=== PATIENT | female | born 1965 | race African-American/Black ===

== ENCOUNTER 2019-02-14 10:14 | Inpatient (IN) | payer BC ==
[~2019-02-14 10:14] MED LIST: Acetaminophen 1,000 MG in Premix Bag 1 BAG IV SCH; Famotidine 20 MG/2 ML SDV IVPUSH SCH; Ropivacaine 49.25 ML, Ketorolac 30 MG, EPINEPHrine 0.5 MG, cloNIDine 80 MCG in Sodium C... INJECT SCH; Scopolamine 1.5 MG Transdermal Patch TRDERM SCH; Tranexamic Acid 2,000 MG in Sodium Chloride 0.9% 100 ML IV ONE; ceFAZolin 2 GM in Premix Bag 1 BAG IV SCH
[2019-02-14] MEDS ORDERED: fentaNYL 100 MCG/2 ML SDV ONE (11:14)
[2019-02-14] MEDS ORDERED: Propofol 200 MG/20 ML SDV ONE (11:14)
[2019-02-14] MEDS ORDERED: Midazolam 1 MG/ML 2 ML SDV ONE (11:14)
[2019-02-14] MEDS: Lactated Ringers 1,000 ML IV SCH ×2 (11:15→22:41)
[2019-02-14] MEDS ORDERED: ceFAZolin/Dextrose,Iso-Osmotic 2 GM/50 ML Duplex Bag IV ONE ×2 (11:16→12:23)
--- NOTE | 2019-02-14 11:28 | PCM.PREANE ---
Preanesthetic Assessment - Anesthesia/Transfusion/Family Hx Anesthesia History: Prior Anesthesia Without Reaction Family History of Anesthesia Reaction: No Transfusion History: No Prior Transfusion(s) - Review of Systems General: No Symptoms Pulmonary: No Symptoms Cardiovascular: No Symptoms Gastrointestinal: No Symptoms Neurological: No Symptoms Other: Reports: None - Physical Assessment NPO Status Date: 02/13/19 O2 Sat by Pulse Oximetry: 98 Respiratory Rate: 16 Vital Signs: Last Vital Signs Temp Pulse 74 02/14/19 11:00 Resp 16 02/14/19 11:00 BP 150/80 H 02/14/19 11:00 Pulse Ox 98 02/14/19 11:00 Height: 5 ft 4 in Weight: 95.708 kg ASA Class: 2 Mental Status: Alert & Oriented x3 Airway Class: Mallampati = 2 Dentition: Reports: Normal Dentition ROM/Head Extension: Full Lungs: Clear to Auscultation, Normal Respiratory Effort Cardiovascular: Regular Rate, Regular Rhythm - Lab Values: Laboratory Last Values Urine HCG, Qual NEGATIVE (NEGATIVE) 02/14/19 10:50 - Allergies Allergies/Adverse Reactions: Allergies Allergy/AdvReac Type Severity Reaction Status Date / Time No Known Allergies Allergy Verified 02/10/19 07:32 - Blood Blood Available: No - Anesthesia Plan Pre-Op Medication Ordered: None - Acknowledgements Anesthesia Type Planned: Spinal Pt an Appropriate Candidate for the Planned Anesthesia: Yes Alternatives and Risks of Anesthesia Discussed w Pt/Guardian: Yes Pt/Guardian Understands and Agrees with Anesthesia Plan: Yes Additional Comments: PMH: htn, hld PLAN: spinal with sedation PreAnesthesia Questionnaire HEENT History: Reports: Other (See Below) Other HEENT History: reading glasses Cardiovascular History: Reports: High Cholesterol Respiratory History: Reports: None Gastrointestinal History: Reports: None Genitourinary History: Reports: None Musculoskeletal History: Reports: Osteoarthritis Neurological History: Reports: None Psychiatric History: Reports: None Endocrine/Metabolic History: Reports: Obesity/BMI 30+ Hematologic History: Reports: None Immunologic History: Reports: None Oncologic (Cancer) History: Reports: None Dermatologic History: Reports: None - Past Surgical History Head Surgeries/Procedures: Reports: None HEENT Surgical History: Reports: None Cardiovascular Surgical History: Reports: None Respiratory Surgical History: Reports: None GI Surgical History: Reports: Colonoscopy, Hernia, Abdominal Female Surgical History: Reports: None Endocrine Surgical History: Reports: None Neurological Surgical History: Reports: None Musculoskeletal Surgical History: Reports: None Oncologic Surgical History: Reports: None Dermatological Surgical History: Reports: None - SUBSTANCE USE Smoking Status *Q: Never Smoker Recreational Drug Use History: No - HOME MEDS Home Medications: Home Meds L.acidoph,Paracasei, B.lactis [Probiotic] 2 tab PO DAILY 02/10/19 [History] atorvaSTATin Calcium [Atorvastatin Calcium] 20 mg PO DAILY 02/10/19 [History] - CURRENT (IN HOUSE) MEDS Current Meds: Current Medications Famotidine (Pepcid) 40 mg IVPUSH ONARRIVE [facility] Last Admin: 02/14/19 11:19 Dose: 40 mg Acetaminophen 1,000 mg/ Premix 100 mls @ 400 mls/hr IV ONARRIVE PAT Last Admin: 02/14/19 11:22 Dose: 400 mls/hr Cefazolin Sodium/Dextrose 2 gm (/ Premix) 50 mls @ 100 mls/hr IV ONCALL PAT Ropivacaine 49.25 ml/Ketorolac Tromethamine 30 mg/Epinephrine HCl 0.5 mg/ Clonidine HCl 80 mcg/ Sodium Chloride 100 mls @ 50 mls/sec INJECT ASDIRECTED PAT Lactated Ringer's (Ringers, Lactated) 1,000 mls @ 100 mls/hr IV ASDIRECTED PAT Last Admin: 02/14/19 11:15 Dose: 100 mls/hr Scopolamine (Transderm-Scop) 1.5 mg TRDERM ONARRIVE PAT Last Admin: 02/14/19 11:26 Dose: 1.5 mg Discontinued Medications Cefazolin Sodium/Dextrose (Ancef) Confirm Administered Dose 2 gm IV .STK-MED ONE Stop: 02/14/19 11:17 Fentanyl (Sublimaze) Confirm Administered Dose 100 mcg .ROUTE .STK-MED ONE Stop: 02/14/19 11:15 Tranexamic Acid 2,000 mg/ (Sodium Chloride) 120 mls @ 600 mls/hr IV ASDIRECTED ONE Stop: 02/14/19 06:11 Midazolam HCl (Versed 1 Mg/Ml) Confirm Administered Dose 2 mg .ROUTE .STK-MED ONE Stop: 02/14/19 11:15 Propofol (Diprivan 20 Ml) Confirm Administered Dose 600 mg .ROUTE .STK-MED ONE Stop: 02/14/19 11:15 Tranexamic Acid (Cyklokapron) Confirm Administered Dose 2,000 mg .ROUTE .[facility] ONE Stop: 02/14/19 07:39
[2019-02-14] MEDS ORDERED: Ondansetron 4 MG/2 ML SDV IVPUSH ONE (12:21)
[2019-02-14] MEDS ORDERED: fentaNYL 100 MCG/2 ML SDV IVPUSH PRN (12:21)
[2019-02-14] MEDS ORDERED: HYDROmorphone 2 MG/ML SDV IVPUSH ONE (12:21)
[2019-02-14] MEDS ORDERED: Phenylephrine 1% 10 MG/ML SDV ONE (12:23)
[2019-02-14] MEDS ORDERED: ePHEDrine 50 MG/ML SDV ONE (12:23)
[2019-02-14] MEDS ORDERED: Docusate Sodium 100 MG Cap PO PRN (13:01)
[2019-02-14] MEDS ORDERED: Sodium Chloride 0.9% 2.5 ML Syringe FLUSH PRN (13:01)
[2019-02-14] MEDS ORDERED: Morphine PF 30 MG/30 ML PCA Vial IV PRN (13:01)
[2019-02-14] MEDS ORDERED: Sodium Chloride 0.9% 10 ML Syringe FLUSH PRN (13:01)
[2019-02-14] MEDS ORDERED: Aluminum Hydroxide/Magnesium Hydroxide/Simethicone Susp 30 ML Cup PO PRN (13:01)
[2019-02-14] MEDS ORDERED: Ondansetron 4 MG/2 ML SDV IVPUSH PRN (13:01)
[2019-02-14] MEDS ORDERED: diphenhydrAMINE 25 MG Cap PO PRN (13:01)
[2019-02-14] MEDS ORDERED: Bisacodyl 10 MG Supp RECTAL PRN (13:01)
--- NOTE | 2019-02-14 13:13 | PCM.OPNOTE ---
- General Post-Op/Procedure Note Date of Surgery/Procedure: 02/14/19 Operative Procedure(s): R TKA Post-Op Diagnosis: DJD R knee Anesthesia Technique: Moderate Sedation, Spinal Primary Surgeon: Xuan Youngblood Leather Coater: Norma Douglas Leather Coater: Shanice Marshall in mLs: 50 Condition: Good Free Text/Narrative:: #[id number] tt=37 min
--- NOTE | 2019-02-14 13:49 | PCM.POSTAN ---
POST ANESTHESIA ASSESSMENT - MENTAL STATUS Mental Status: Alert, Oriented - RESPIRATORY Respiratory Status: Respiratory Rate WNL, Airway Patent, O2 Saturation Stable - CARDIOVASCULAR CV Status: Pulse Rate WNL, Blood Pressure Stable - GASTROINTESTINAL GI Status: No Symptoms - POST OP HYDRATION Hydration Status: Adequate & Stable
[2019-02-14] MEDS: oxyCODONE 5 MG Tab PO PRN ×2 (18:25→23:56)
[2019-02-14] MEDS: Acetaminophen 1,000 MG in Premix Bag 1 BAG IV SCH ×2 (18:31→23:57)
[2019-02-14] MEDS: Ketorolac 30 MG/ML SDV IVPUSH SCH (19:14)
[2019-02-14] MEDS: ceFAZolin 2 GM in Premix Bag 1 BAG IV SCH (20:00)
[2019-02-15] MEDS: Ketorolac 30 MG/ML SDV IVPUSH SCH (00:03)
[2019-02-15] MEDS: ceFAZolin 2 GM in Premix Bag 1 BAG IV SCH (03:42)
[2019-02-15] MEDS: Acetaminophen 1,000 MG in Premix Bag 1 BAG IV SCH (05:43)
[2019-02-15] MEDS ORDERED: Morphine 4 MG/ML Syringe IVPUSH PRN (06:00)
[2019-02-15] MEDS ORDERED: Acetaminophen/oxyCODONE 325-5 MG Tab PO PRN (08:00)
[2019-02-15] MEDS: Acetaminophen/oxyCODONE 325-5 MG Tab PO PRN ×3 (08:20→16:40)
[2019-02-15] MEDS: Polyethylene Glycol 3350 Powder 17 GM Packet PO SCH (08:22)
[2019-02-15] MEDS: Famotidine 20 MG Tab PO SCH (08:22)
[2019-02-15] MEDS: atorvaSTATin 20 MG Tab PO SCH (08:23)
[2019-02-15] MEDS: Celecoxib 100 MG Cap PO SCH ×2 (08:24→20:11)
[2019-02-15] MEDS: Aspirin 325 MG Tab PO SCH ×2 (08:24→20:12)
--- NOTE | 2019-02-15 08:24 | PCM48HPAN ---
Post Anesthesia Note - EVALUATION WITHIN 48HRS OF ANESTHETIC Vital Signs in Normal Range: Yes Patient Participated in Evaluation: Yes Respiratory Function Stable: Yes Airway Patent: Yes Cardiovascular Function Stable: Yes Hydration Status Stable: Yes Pain Control Satisfactory: Yes Nausea and Vomiting Control Satisfactory: Yes Mental Status Recovered: Yes Resp Rate: 16
--- NOTE | 2019-02-15 08:28 | OR ---
SURGEON: Xuan Youngblood MD DATE OF PROCEDURE: 02/14/2019 PREOPERATIVE DIAGNOSIS: Degenerative joint disease of right knee, tricompartmental. POSTOPERATIVE DIAGNOSIS: Degenerative joint disease of right knee, tricompartmental. PROCEDURE PERFORMED: Right total knee arthroplasty. PRIMARY SURGEON: Xuan Youngblood MD. ASSISTANTS: MARÍA Springer and Shanice Marshall PA-C. ANESTHESIA: Spinal with sedation. ESTIMATED BLOOD LOSS: 50 mL. TOURNIQUET TIME: 37 minutes. COMPLICATIONS: None. DEEP VENOUS THROMBOSIS PROPHYLAXIS: PAS boot and DIMITRIOS hose to the nonoperative leg. IMPLANTS USED: David Persona femoral component, size 8 standard (LPS), tibial component size E, 10-mm all-polyethylene articular surface, and 32-mm all-polyethylene patella. INTRAOPERATIVE FINDINGS: Showed severe tricompartmental and degenerative changes with grade 4 chondromalacia and osteophyte formation. No significant synovitis was noted. BRIEF HISTORY: Angeles is a 53-year-old female, who has had complaint of progressive right knee pain. She had failed conservative treatment. Due to her lack of response to conservative treatment, I did recommend surgical intervention. The risks and goals of procedure were discussed with the patient and were documented preoperatively. She agreed to proceed. DESCRIPTION OF PROCEDURE: The patient was properly identified and brought to the operating room. The patient was then transferred from the operating room cart and placed on the operating table in a supine position. Anesthesia was administered by the anesthesia staff. After adequate anesthesia was obtained, a well-padded tourniquet was applied to the surgical lower extremity. Patel catheter was placed. The lower extremity was then prepped in standard fashion using ChloraPrep solution. It was then sterilely draped. A time-out was performed to ensure correct site and procedure. Preoperative antibiotics were given along with one gram tranexamic acid IV. The surgical site had been marked preoperatively. An Esmarch was used to exsanguinate the right lower extremity and the tourniquet was inflated. An incision was made over the anterior aspect of the knee. The subcutaneous tissues were dissected down to the level of the fascia. A medial parapatellar approach to the knee was made. A portion of the infrapatellar fat pad was then excised. The distal femur was then exposed. The step reamer was used to gain access to the intramedullary canal. This was placed in 6 degrees of valgus. Pins were placed. The distal femoral cutting block was placed and the distal femoral cut was made. Instrumentation was then removed. The femur was then sized. Both Whitesides' line and the epicondylar axis were then marked with electrocautery. The 4-in-1 cutting block was placed. This was placed in a slightly externally rotated position, which corresponded well with the previously drawn lines. The cutting guide was then pinned into position. An Ricky wing guide was used to check the depth of resection of our anterior condylar cut and it was felt that no notching would occur. The anterior condylar cut was then made followed by the posterior condylar cut. Both the posterior chamfer and anterior chamfer cuts were then made. The cutting block was then removed along with the excess bony remnants. We then turned our attention to the tibia. The anterior cruciate ligament and posterior cruciate ligament were released and a posterior cruciate ligament retractor was placed to allow the tibia to be pulled anteriorly. The tibial extra-medullary guide was then positioned. We chose to take approximately 2 mm off the lowest side. The proximal tibia cutting guide was then placed and screwed into position. The proximal tibial resection was then made with care being taken to protect the patellar tendon. The bony resection was then removed. The remainder of the medial and lateral meniscus were then excised. Care was taken to protect the popliteus tendon. The tibia was then sized to the appropriate size. The distal femur was then elevated. The posterior capsule was stripped off the distal femur both medially and laterally. The posterior capsule along with the medial and lateral gutters were then injected with a standard mixture consisting of clonidine, epinephrine, Toradol, and ropivacaine, unless any allergies were found preoperatively. The femoral component was then placed onto the distal femur in a slightly lateral position. This fit the femur well. A box cut was then made without difficulty. This was then removed. The tibial trial along with the polyethylene liner was then placed. The knee came easily into full extension and was stable to varus and valgus stressing both in full extension and flexion. Any additional releases were performed at this time. We then returned our attention to the patella. The patella was everted and towel clamps were used to hold the patella in position. It was resected to a 15 millimeter thickness. It was then sized to the appropriate size. It was prepared in the usual fashion after placing the predetermined size clamps. This was placed in a slightly superior and medial position. The clamp was then removed. The patellar trial button was placed. The knee was taken through a range of motion using the no-touch technique. The patella tracked centrally. A drop evita was then placed to check alignment. All instruments were then removed from the knee. The tibial sizer was then placed on the tibia. The tibia was prepared in the usual fashion using the reamer and broach. This was then removed. All bony surfaces were copiously irrigated with Pulsavac solution. They were then suctioned dry. Cement was prepared on the back table in the usual manner. Antibiotic impregnated cement was used if the patient was diabetic. Once it was prepared, the bone ends were again suctioned dry. The tibia was cemented into place first. This was malleted into position. Excess cement was then cleared. The femur was then placed in a similar manner. We placed the polyethylene trial into place and the knee was brought into full extension. An axial load was placed while keeping the knee in full extension. The patella button was also cemented into position and the clamp was used to hold this in place as the cement was allowed to cure. The wound was copiously irrigated with saline using a Pulsavac brick machine operator. Following this, 1 gram of tranexamic acid was applied topically to the wound during the curing process. After we had adequate curing of the cement, the knee was again taken through a range of motion. The size of the polyethylene was then determined. The polyethylene trial was then removed. The tibial tray was suctioned to make sure there was no remaining soft tissue or cement. Excess cement was cleared from around the edges of the prosthesis as well. The tourniquet was then deflated. We were able to observe for any excess bleeding and none was noted. Electrocautery was used to maintain hemostasis. An additional gram of tranexamic acid was given IV. The retractors were again placed and the predetermined polyethylene was then placed. This was locked into position without difficulty. The knee was again taken through a range of motion with no change from the prior exam. The fascial layer was closed with Number One Vicryl. The subcutaneous tissues were closed with 2-0 Vicryl. The skin was closed with kaley. Xeroform gauze was placed over the wound and a bulky dressing was applied. The patient was then awakened from anesthesia and transferred back to the operating room cart. They were brought to the recovery room in stable condition. All needle and sponge counts were correct. YAMILET GOMEZ /[id number]
[2019-02-15] MEDS: Lactated Ringers 1,000 ML IV SCH (09:53)
--- NOTE | 2019-02-15 09:56 | CR ---
EXAMINATION: Right knee HISTORY: Arthroplasty COMPARISON: 08/10/2018 TECHNIQUE: 2 views FINDINGS/IMPRESSION: Right total knee hardware is demonstrated in good position and alignment. Postoperative soft tissue changes are noted.
--- NOTE | 2019-02-15 12:27 | PCM.SURGPN ---
<Norma Douglas - Last Filed: 02/15/19 12:20> - General Info Date of Service: 02/15/19 (0800) Date of Surgery/Procedure: 02/14/19 (s/p RIGHT TKA) POD#: 1 Post-Op Diagnosis: degenerative joint disease, right knee, tricompartmental Admission Diagnosis/Problem: Knee pain Functional Status: Reports: Pain Controlled, Tolerating Diet, Ambulating, Other (up in chair for breakfast. tolerating po fluids. No N/V yesterday and tolerated supper. Vee catheter removed. Has not voided yet. Did not ambulate with PT yesterday, just bed to chair transfer. Pain controlled. No acute concerns. ) - Review of Systems General: Reports: No Symptoms. Denies: Fever HEENT: Reports: No Symptoms Pulmonary: Reports: No Symptoms. Denies: Shortness of Breath Cardiovascular: Reports: No Symptoms. Denies: Chest Pain Gastrointestinal: Reports: No Symptoms. Denies: Abdominal Pain, Nausea, Vomiting Genitourinary: Reports: Other (vee catheter removed this morning) Musculoskeletal: Reports: Joint Pain (s/p right TKA) Skin: Reports: No Symptoms Neurological: Reports: No Symptoms. Denies: Confusion Psychiatric: Reports: No Symptoms - Patient Data Vitals - Most Recent: Last Vital Signs Temp 36.3 C 02/15/19 11:00 Pulse 85 02/15/19 11:00 Resp 14 02/15/19 11:00 BP 126/58 L 02/15/19 11:00 Pulse Ox 96 02/15/19 11:00 Weight - Most Recent: 95.708 kg I&O - Last 24 Hours: Intake & Output 02/14/19 02/15/19 02/15/19 22:59 06:59 14:59 Intake Total 900 1833 Output Total 250 1075 Balance 650 758 Lab Results Last 24 Hrs: Laboratory Results - last 24 hr 02/15/19 Range/Units 05:20 Hgb 11.6 L (12.0-16.0) g/dL Hct 35.1 L (36.0-46.0) % Med Orders - Current: Current Medications Al Hydroxide/Mg Hydroxide (Mag-Al Plus) 30 ml PO Q4H PRN PRN Reason: Indigestion Aspirin (Aspirin) 325 mg PO BID PAT Last Admin: 02/15/19 08:24 Dose: 325 mg Atorvastatin Calcium (Lipitor) 20 mg PO DAILY [facility] Last Admin: 02/15/19 08:23 Dose: 20 mg Bisacodyl (Dulcolax) 10 mg RECTAL DAILY PRN PRN Reason: Constipation Celecoxib (Celebrex) 200 mg PO BID [facility] Last Admin: 02/15/19 08:24 Dose: 200 mg Diphenhydramine HCl (Benadryl) 25 - 50 mg PO Q6H PRN PRN Reason: Itching Docusate Sodium (Colace) 100 mg PO BID PRN PRN Reason: Constipation Famotidine (Pepcid) 40 mg IVPUSH ONARRIVE [facility] Last Admin: 02/14/19 11:19 Dose: 40 mg Famotidine (Pepcid) 40 mg PO DAILY [facility] Last Admin: 02/15/19 08:22 Dose: 40 mg Fentanyl (Sublimaze) 50 mcg IVPUSH Q5M PRN PRN Reason: Pain (severe 7-10) Stop: 02/15/19 12:21 Acetaminophen 1,000 mg/ Premix 100 mls @ 400 mls/hr IV ONARRIVE [facility] Last Admin: 02/14/19 11:22 Dose: 400 mls/hr Cefazolin Sodium/Dextrose 2 gm (/ Premix) 50 mls @ 100 mls/hr IV ONCALL [facility] Ropivacaine 49.25 ml/Ketorolac Tromethamine 30 mg/Epinephrine HCl 0.5 mg/ Clonidine HCl 80 mcg/ Sodium Chloride 100 mls @ 50 mls/sec INJECT ASDIRECTED [facility] Lactated Ringer's (Ringers, Lactated) 1,000 mls @ 100 mls/hr IV ASDIRECTED [facility] Last Admin: 02/15/19 09:53 Dose: 100 mls/hr Morphine Sulfate (Morphine) 1 - 3 mg IVPUSH Q3H PRN PRN Reason: Pain Ondansetron HCl (Zofran) 4 mg IVPUSH Q6H PRN PRN Reason: Nausea/Vomiting Oxycodone/Acetaminophen (Percocet 325-5 Mg) 1 - 2 tab PO Q4H PRN PRN Reason: Pain Last Admin: 02/15/19 08:20 Dose: 2 tab Oxycodone/Acetaminophen (Percocet 325-5 Mg) 1 - 2 tab PO Q4H PRN PRN Reason: Pain Polyethylene Glycol (Miralax) 17 gm PO DAILY [facility] Last Admin: 02/15/19 08:22 Dose: 17 gm Scopolamine (Transderm-Scop) 1.5 mg TRDERM ONARRIVE [facility] Last Admin: 02/14/19 11:26 Dose: 1.5 mg Sodium Chloride (Saline Flush) 10 ml FLUSH ASDIRECTED PRN PRN Reason: Keep Vein Open Sodium Chloride (Saline Flush) 2.5 ml FLUSH ASDIRECTED PRN PRN Reason: Keep Vein Open Discontinued Medications Cefazolin Sodium/Dextrose (Ancef) Confirm Administered Dose 2 gm IV .STK-MED ONE Stop: 02/14/19 11:17 Cefazolin Sodium/Dextrose (Ancef) Confirm Administered Dose 2 gm IV .STK-MED ONE Stop: 02/14/19 12:24 Ephedrine Sulfate (Ephedrine Sulfate) Confirm Administered Dose 50 mg .ROUTE .STK-MED ONE Stop: 02/14/19 12:24 Fentanyl (Sublimaze) Confirm Administered Dose 100 mcg .ROUTE .STK-MED ONE Stop: 02/14/19 11:15 Hydromorphone HCl (Dilaudid) 2 mg IVPUSH ONETIME ONE Stop: 02/14/19 12:22 Last Admin: 02/14/19 19:33 Dose: Not Given Tranexamic Acid 2,000 mg/ (Sodium Chloride) 120 mls @ 600 mls/hr IV ASDIRECTED ONE Stop: 02/14/19 06:11 Last Admin: 02/14/19 19:33 Dose: Not Given Acetaminophen 1,000 mg/ Premix 100 mls @ 400 mls/hr IV Q6H PAT Stop: 02/15/19 06:14 Last Admin: 02/15/19 05:43 Dose: 400 mls/hr Cefazolin Sodium/Dextrose 2 gm (/ Premix) 50 mls @ 100 mls/hr IV Q8H [facility] Stop: 02/15/19 04:29 Last Admin: 02/15/19 03:42 Dose: 100 mls/hr Ketorolac Tromethamine (Toradol) 30 mg IVPUSH Q6H [facility] Stop: 02/15/19 05:00 Last Admin: 02/15/19 00:03 Dose: 30 mg Midazolam HCl (Versed 1 Mg/Ml) Confirm Administered Dose 2 mg .ROUTE .STK-MED ONE Stop: 02/14/19 11:15 Morphine Sulfate (Morphine [place] Operator 30 Mg In 30 Ml) 30 mg IV ASDIRECTED PRN; Protocol PRN Reason: Pain Stop: 02/15/19 06:00 Last Admin: 02/14/19 14:03 Dose: 30 mg Ondansetron HCl (Zofran) 4 mg IVPUSH ONETIME ONE Stop: 02/14/19 12:22 Last Admin: 02/14/19 19:33 Dose: Not Given Oxycodone HCl (Oxycodone) 5 - 10 mg PO Q4H PRN PRN Reason: Pain Stop: 02/15/19 08:00 Last Admin: 02/14/19 23:56 Dose: 10 mg Phenylephrine HCl (David-Synephrine) Confirm Administered Dose 10 mg .ROUTE .STK- MED ONE Stop: 02/14/19 12:24 Propofol (Diprivan 20 Ml) Confirm Administered Dose 600 mg .ROUTE .STK-MED ONE Stop: 02/14/19 11:15 Tranexamic Acid (Cyklokapron) Confirm Administered Dose 2,000 mg .ROUTE .STK- MED ONE Stop: 02/14/19 07:39 - Exam Wound/Incisions: Dressing Dry and Intact, No Drainage (surgical dressing intact without drainage) Quality Assessment: DVT Prophylaxis (ASA and SCDs) General: Alert, Oriented, Cooperative, No Acute Distress HEENT: Pupils Equal Neck: Supple Lungs: Normal Respiratory Effort GI/Abdominal Exam: Normal Bowel Sounds Extremities: Other (AT/EHL/gastroc 5/5 Sensation grossly intact to LE. PP2+) Skin: Warm, Dry Neurological: Normal Speech Psy/Mental Status: Alert, Normal Affect, Normal Mood - Problem List Review Problem List Initiated/Reviewed/Updated: Yes - My Orders Last 24 Hours: Active Orders 24 hr Category Date Time Status Neurovascular Check [RC] Q2HR Care 02/14/19 13:01 Active Wound Care [RC] DAILY Care 02/14/19 13:01 Active PT Evaluation and Treatment [CONS] Routine Cons 02/14/19 13:01 Active Regular Diet [DIET] Diet 02/14/19 Dinner Active HEMOGLOBIN/HEMATOCRIT,HH [HEME] DAILY Lab 02/16/19 06:00 Ordered Acetaminophen/oxyCODONE [Percocet 325-5 MG] Med 02/15/19 06:00 Active 1 - 2 tab PO Q4H PRN Acetaminophen/oxyCODONE [Percocet 325-5 MG] Med 02/15/19 08:00 Active 1 - 2 tab PO Q4H PRN Alum Hydrox/Mag Hydrox/Simeth [Mag-Al Plus] Med 02/14/19 13:01 Active 30 ml PO Q4H PRN Aspirin Med 02/15/19 09:00 Active 325 mg PO BID Bisacodyl [Dulcolax] Med 02/14/19 13:01 Active 10 mg RECTAL DAILY PRN Celecoxib [CeleBREX] Med 02/15/19 09:00 Active 200 mg PO BID Docusate Sodium [Colace] Med 02/14/19 13:01 Active 100 mg PO BID PRN Famotidine [Pepcid] Med 02/15/19 09:00 Active 40 mg PO DAILY Morphine Med 02/15/19 06:00 Active 1 - 3 mg IVPUSH Q3H PRN Ondansetron [Zofran] Med 02/14/19 13:01 Active 4 mg IVPUSH Q6H PRN Polyethylene Glycol 3350 [MiraLAX] Med 02/15/19 09:00 Active 17 gm PO DAILY Sodium Chloride 0.9% [Saline Flush] Med 02/14/19 13:01 Active 10 ml FLUSH ASDIRECTED PRN Sodium Chloride 0.9% [Saline Flush] Med 02/14/19 13:01 Active 2.5 ml FLUSH ASDIRECTED PRN atorvaSTATin [Lipitor] Med 02/15/19 09:00 Active 20 mg PO DAILY diphenhydrAMINE [Benadryl] Med 02/14/19 13:01 Active 25 - 50 mg PO Q6H PRN fentaNYL [Sublimaze] Med 02/14/19 12:21 Active 50 mcg IVPUSH Q5M PRN Convert IV to Saline Lock [OM.PC] PRN Oth 02/14/19 13:15 Ordered Convert IV to Saline Lock [OM.PC] PRN Oth 02/15/19 13:15 Ordered Ice Therapy [OM.PC] Routine Oth 02/14/19 13:01 Ordered Medication Orders Al Hydroxide/Mg Hydroxide (Mag-Al Plus) 30 ml PO Q4H PRN PRN Reason: Indigestion Aspirin (Aspirin) 325 mg PO BID [facility] Last Admin: 02/15/19 08:24 Dose: 325 mg Atorvastatin Calcium (Lipitor) 20 mg PO DAILY [facility] Last Admin: 02/15/19 08:23 Dose: 20 mg Bisacodyl (Dulcolax) 10 mg RECTAL DAILY PRN PRN Reason: Constipation Celecoxib (Celebrex) 200 mg PO BID [facility] Last Admin: 02/15/19 08:24 Dose: 200 mg Diphenhydramine HCl (Benadryl) 25 - 50 mg PO Q6H PRN PRN Reason: Itching Docusate Sodium (Colace) 100 mg PO BID PRN PRN Reason: Constipation Famotidine (Pepcid) 40 mg IVPUSH ONARRIVE [facility] Last Admin: 02/14/19 11:19 Dose: 40 mg Famotidine (Pepcid) 40 mg PO DAILY [facility] Last Admin: 02/15/19 08:22 Dose: 40 mg Fentanyl (Sublimaze) 50 mcg IVPUSH Q5M PRN PRN Reason: Pain (severe 7-10) Stop: 02/15/19 12:21 Acetaminophen 1,000 mg/ Premix 100 mls @ 400 mls/hr IV ONARRIVE [facility] Last Admin: 02/14/19 11:22 Dose: 400 mls/hr Cefazolin Sodium/Dextrose 2 gm (/ Premix) 50 mls @ 100 mls/hr IV ONCALL [facility] Ropivacaine 49.25 ml/Ketorolac Tromethamine 30 mg/Epinephrine HCl 0.5 mg/ Clonidine HCl 80 mcg/ Sodium Chloride 100 mls @ 50 mls/sec INJECT ASDIRECTED [facility] Lactated Ringer's (Ringers, Lactated) 1,000 mls @ 100 mls/hr IV ASDIRECTED [facility] Last Admin: 02/15/19 09:53 Dose: 100 mls/hr Infusion: 02/15/19 08:41 Dose: 100 mls/hr Admin: 02/14/19 22:41 Dose: 100 mls/hr Infusion: 02/14/19 21:15 Dose: 100 mls/hr Admin: 02/14/19 11:15 Dose: 100 mls/hr Morphine Sulfate (Morphine) 1 - 3 mg IVPUSH Q3H PRN PRN Reason: Pain Ondansetron HCl (Zofran) 4 mg IVPUSH Q6H PRN PRN Reason: Nausea/Vomiting Oxycodone/Acetaminophen (Percocet 325-5 Mg) 1 - 2 tab PO Q4H PRN PRN Reason: Pain Last Admin: 02/15/19 08:20 Dose: 2 tab Oxycodone/Acetaminophen (Percocet 325-5 Mg) 1 - 2 tab PO Q4H PRN PRN Reason: Pain Polyethylene Glycol (Miralax) 17 gm PO DAILY PAT Last Admin: 02/15/19 08:22 Dose: 17 gm Scopolamine (Transderm-Scop) 1.5 mg TRDERM ONARRIVE PAT Last Admin: 02/14/19 11:26 Dose: 1.5 mg Sodium Chloride (Saline Flush) 10 ml FLUSH ASDIRECTED PRN PRN Reason: Keep Vein Open Sodium Chloride (Saline Flush) 2.5 ml FLUSH ASDIRECTED PRN PRN Reason: Keep Vein Open - Assessment Assessment (Free Text/Narrative):: 1. S/P RIGHT TKA 2. post-hemorrhagic anemia, stable at 11.6 - Plan Plan (Free Text/Narrative):: Doing well this morning. Pain controlled. PT today for distance ambulation. Vee d/c'd. d/c IV fluids and [employer]. PO Rx for pain control. DVT prophylaxis : asa starts today. SCDs. Surgical dressing CDI. Will be removed tomorrow and large AquaCell dressing will be applied. Anticipate overnight stay for continued PT today and pain management. <Xuan Youngblood R - Last Filed: 02/15/19 19:27> - Patient Data Vitals - Most Recent: Last Vital Signs Temp 98.7 F 02/15/19 15:00 Pulse 78 02/15/19 15:00 Resp 20 02/15/19 15:00 BP 158/73 H 02/15/19 15:00 Pulse Ox 96 02/15/19 15:00 I&O - Last 24 Hours: Intake & Output 02/15/19 02/15/19 02/15/19 06:59 14:59 22:59 Intake Total 1833 2384 Output Total 107 700 Balance 754 4044 Lab Results Last 24 Hrs: Laboratory Results - last 24 hr 02/15/19 Range/Units 05:20 Hgb 11.6 L (12.0-16.0) g/dL Hct 35.1 L (36.0-46.0) % Med Orders - Current: Current Medications Al Hydroxide/Mg Hydroxide (Mag-Al Plus) 30 ml PO Q4H PRN PRN Reason: Indigestion Aspirin (Aspirin) 325 mg PO BID [facility] Last Admin: 02/15/19 08:24 Dose: 325 mg Atorvastatin Calcium (Lipitor) 20 mg PO DAILY [facility] Last Admin: 02/15/19 08:23 Dose: 20 mg Bisacodyl (Dulcolax) 10 mg RECTAL DAILY PRN PRN Reason: Constipation Celecoxib (Celebrex) 200 mg PO BID [facility] Last Admin: 02/15/19 08:24 Dose: 200 mg Diphenhydramine HCl (Benadryl) 25 - 50 mg PO Q6H PRN PRN Reason: Itching Docusate Sodium (Colace) 100 mg PO BID PRN PRN Reason: Constipation Famotidine (Pepcid) 40 mg IVPUSH ONARRIVE [facility] Last Admin: 02/14/19 11:19 Dose: 40 mg Famotidine (Pepcid) 40 mg PO DAILY [facility] Last Admin: 02/15/19 08:22 Dose: 40 mg Acetaminophen 1,000 mg/ Premix 100 mls @ 400 mls/hr IV ONARRIVE [facility] Last Admin: 02/14/19 11:22 Dose: 400 mls/hr Cefazolin Sodium/Dextrose 2 gm (/ Premix) 50 mls @ 100 mls/hr IV ONCALL [facility] Ropivacaine 49.25 ml/Ketorolac Tromethamine 30 mg/Epinephrine HCl 0.5 mg/ Clonidine HCl 80 mcg/ Sodium Chloride 100 mls @ 50 mls/sec INJECT ASDIRECTED [facility] Lactated Ringer's (Ringers, Lactated) 1,000 mls @ 100 mls/hr IV ASDIRECTED [facility] Last Admin: 02/15/19 09:53 Dose: 100 mls/hr Morphine Sulfate (Morphine) 1 - 3 mg IVPUSH Q3H PRN PRN Reason: Pain Ondansetron HCl (Zofran) 4 mg IVPUSH Q6H PRN PRN Reason: Nausea/Vomiting Oxycodone/Acetaminophen (Percocet 325-5 Mg) 1 - 2 tab PO Q4H PRN PRN Reason: Pain Last Admin: 02/15/19 16:40 Dose: 2 tab Oxycodone/Acetaminophen (Percocet 325-5 Mg) 1 - 2 tab PO Q4H PRN PRN Reason: Pain Polyethylene Glycol (Miralax) 17 gm PO DAILY [facility] Last Admin: 02/15/19 08:22 Dose: 17 gm Scopolamine (Transderm-Scop) 1.5 mg TRDERM ONARRIVE [facility] Last Admin: 02/14/19 11:26 Dose: 1.5 mg Sodium Chloride (Saline Flush) 10 ml FLUSH ASDIRECTED PRN PRN Reason: Keep Vein Open Sodium Chloride (Saline Flush) 2.5 ml FLUSH ASDIRECTED PRN PRN Reason: Keep Vein Open Discontinued Medications Cefazolin Sodium/Dextrose (Ancef) Confirm Administered Dose 2 gm IV .STK-MED ONE Stop: 02/14/19 11:17 Cefazolin Sodium/Dextrose (Ancef) Confirm Administered Dose 2 gm IV .STK-MED ONE Stop: 02/14/19 12:24 Ephedrine Sulfate (Ephedrine Sulfate) Confirm Administered Dose 50 mg .ROUTE .STK-MED ONE Stop: 02/14/19 12:24 Fentanyl (Sublimaze) Confirm Administered Dose 100 mcg .ROUTE .STK-MED ONE Stop: 02/14/19 11:15 Fentanyl (Sublimaze) 50 mcg IVPUSH Q5M PRN PRN Reason: Pain (severe 7-10) Stop: 02/15/19 12:21 Hydromorphone HCl (Dilaudid) 2 mg IVPUSH ONETIME ONE Stop: 02/14/19 12:22 Last Admin: 02/14/19 19:33 Dose: Not Given Tranexamic Acid 2,000 mg/ (Sodium Chloride) 120 mls @ 600 mls/hr IV ASDIRECTED ONE Stop: 02/14/19 06:11 Last Admin: 02/14/19 19:33 Dose: Not Given Acetaminophen 1,000 mg/ Premix 100 mls @ 400 mls/hr IV Q6H [facility] Stop: 02/15/19 06:14 Last Admin: 02/15/19 05:43 Dose: 400 mls/hr Cefazolin Sodium/Dextrose 2 gm (/ Premix) 50 mls @ 100 mls/hr IV Q8H [facility] Stop: 02/15/19 04:29 Last Admin: 02/15/19 03:42 Dose: 100 mls/hr Ketorolac Tromethamine (Toradol) 30 mg IVPUSH Q6H PAT Stop: 02/15/19 05:00 Last Admin: 02/15/19 00:03 Dose: 30 mg Midazolam HCl (Versed 1 Mg/Ml) Confirm Administered Dose 2 mg .ROUTE .STK-MED ONE Stop: 02/14/19 11:15 Morphine Sulfate (Morphine [place] Operator 30 Mg In 30 Ml) 30 mg IV ASDIRECTED PRN; Protocol PRN Reason: Pain Stop: 02/15/19 06:00 Last Admin: 02/14/19 14:03 Dose: 30 mg Ondansetron HCl (Zofran) 4 mg IVPUSH ONETIME ONE Stop: 02/14/19 12:22 Last Admin: 02/14/19 19:33 Dose: Not Given Oxycodone HCl (Oxycodone) 5 - 10 mg PO Q4H PRN PRN Reason: Pain Stop: 02/15/19 08:00 Last Admin: 02/14/19 23:56 Dose: 10 mg Phenylephrine HCl (David-Synephrine) Confirm Administered Dose 10 mg .ROUTE .STK- MED ONE Stop: 02/14/19 12:24 Propofol (Diprivan 20 Ml) Confirm Administered Dose 600 mg .ROUTE .STK-MED ONE Stop: 02/14/19 11:15 Tranexamic Acid (Cyklokapron) Confirm Administered Dose 2,000 mg .ROUTE .STK- MED ONE Stop: 02/14/19 07:39 - My Orders Last 24 Hours: Active Orders 24 hr Category Date Time Status HEMOGLOBIN/HEMATOCRIT,HH [HEME] DAILY Lab 02/16/19 06:00 Ordered Acetaminophen/oxyCODONE [Percocet 325-5 MG] Med 02/15/19 06:00 Active 1 - 2 tab PO Q4H PRN Acetaminophen/oxyCODONE [Percocet 325-5 MG] Med 02/15/19 08:00 Active 1 - 2 tab PO Q4H PRN Aspirin Med 02/15/19 09:00 Active 325 mg PO BID Celecoxib [CeleBREX] Med 02/15/19 09:00 Active 200 mg PO BID Famotidine [Pepcid] Med 02/15/19 09:00 Active 40 mg PO DAILY Morphine Med 02/15/19 06:00 Active 1 - 3 mg IVPUSH Q3H PRN Polyethylene Glycol 3350 [MiraLAX] Med 02/15/19 09:00 Active 17 gm PO DAILY atorvaSTATin [Lipitor] Med 02/15/19 09:00 Active 20 mg PO DAILY Convert IV to Saline Lock [OM.PC] PRN Oth 02/15/19 13:15 Ordered Medication Orders Al Hydroxide/Mg Hydroxide (Mag-Al Plus) 30 ml PO Q4H PRN PRN Reason: Indigestion Aspirin (Aspirin) 325 mg PO BID [facility] Last Admin: 02/15/19 08:24 Dose: 325 mg Atorvastatin Calcium (Lipitor) 20 mg PO DAILY [facility] Last Admin: 02/15/19 08:23 Dose: 20 mg Bisacodyl (Dulcolax) 10 mg RECTAL DAILY PRN PRN Reason: Constipation Celecoxib (Celebrex) 200 mg PO BID [facility] Last Admin: 02/15/19 08:24 Dose: 200 mg Diphenhydramine HCl (Benadryl) 25 - 50 mg PO Q6H PRN PRN Reason: Itching Docusate Sodium (Colace) 100 mg PO BID PRN PRN Reason: Constipation Famotidine (Pepcid) 40 mg IVPUSH ONARRIVE [facility] Last Admin: 02/14/19 11:19 Dose: 40 mg Famotidine (Pepcid) 40 mg PO DAILY [facility] Last Admin: 02/15/19 08:22 Dose: 40 mg Acetaminophen 1,000 mg/ Premix 100 mls @ 400 mls/hr IV ONARRIVE [facility] Last Admin: 02/14/19 11:22 Dose: 400 mls/hr Cefazolin Sodium/Dextrose 2 gm (/ Premix) 50 mls @ 100 mls/hr IV ONCALL [facility] Ropivacaine 49.25 ml/Ketorolac Tromethamine 30 mg/Epinephrine HCl 0.5 mg/ Clonidine HCl 80 mcg/ Sodium Chloride 100 mls @ 50 mls/sec INJECT ASDIRECTED [facility] Lactated Ringer's (Ringers, Lactated) 1,000 mls @ 100 mls/hr IV ASDIRECTED [facility] Last Admin: 02/15/19 09:53 Dose: 100 mls/hr Infusion: 02/15/19 08:41 Dose: 100 mls/hr Admin: 02/14/19 22:41 Dose: 100 mls/hr Infusion: 02/14/19 21:15 Dose: 100 mls/hr Admin: 02/14/19 11:15 Dose: 100 mls/hr Morphine Sulfate (Morphine) 1 - 3 mg IVPUSH Q3H PRN PRN Reason: Pain Ondansetron HCl (Zofran) 4 mg IVPUSH Q6H PRN PRN Reason: Nausea/Vomiting Oxycodone/Acetaminophen (Percocet 325-5 Mg) 1 - 2 tab PO Q4H PRN PRN Reason: Pain Last Admin: 02/15/19 16:40 Dose: 2 tab Admin: 02/15/19 12:43 Dose: 2 tab Admin: 02/15/19 08:20 Dose: 2 tab Oxycodone/Acetaminophen (Percocet 325-5 Mg) 1 - 2 tab PO Q4H PRN PRN Reason: Pain Polyethylene Glycol (Miralax) 17 gm PO DAILY [facility] Last Admin: 02/15/19 08:22 Dose: 17 gm Scopolamine (Transderm-Scop) 1.5 mg TRDERM ONARRIVE [facility] Last Admin: 02/14/19 11:26 Dose: 1.5 mg Sodium Chloride (Saline Flush) 10 ml FLUSH ASDIRECTED PRN PRN Reason: Keep Vein Open Sodium Chloride (Saline Flush) 2.5 ml FLUSH ASDIRECTED PRN PRN Reason: Keep Vein Open - Plan Plan (Free Text/Narrative):: 1930 patient seen and examined. Agree wither approximately 3 drea progress slowly with physical therapy today. Hemoglobin is stable. 1. Continue current pain management-will add tramadol for breakthrough pain 2. Continue physical therapy and mobilization 3. Aspirin for DVT prophylaxis 4. Anticipate discharge home tomorrow following physical therapy rrk
[2019-02-15] MEDS ORDERED: traMADol 50 MG Tab PO PRN (19:25)
[2019-02-16] MEDS: Acetaminophen/oxyCODONE 325-5 MG Tab PO PRN ×2 (04:15→13:08)
[2019-02-16] MEDS: Aspirin 325 MG Tab PO SCH (08:18)
[2019-02-16] MEDS: Celecoxib 100 MG Cap PO SCH (08:18)
[2019-02-16] MEDS: Famotidine 20 MG Tab PO SCH (08:18)
[2019-02-16] MEDS: Polyethylene Glycol 3350 Powder 17 GM Packet PO SCH (08:18)
[2019-02-16] MEDS: atorvaSTATin 20 MG Tab PO SCH (08:18)
--- NOTE | 2019-02-18 08:40 | PCM.DCSUM1 ---
Discharge Summary - Hospital Course Free Text/Narrative:: document # [id number] - Discharge Data Discharge Date: 02/16/19 Discharge Disposition: Home, Self-Care 01 Condition: Good - Patient Summary/Data Operative Procedure(s) Performed: R TKA Consults: Consultations 02/14/19 13:01 PT Evaluation and Treatment [CONS] Routine - Patient Instructions Other/Special Instructions: Please see Dr. Youngblood's post-operative total knee arthroplasty patient instructions (orange sheet). - Discharge Plan Prescriptions/Med Rec: Acetaminophen/oxyCODONE [Percocet 325-5 MG] 1 - 2 tab PO Q4H PRN #60 tablet PRN Reason: Pain Aspirin 325 mg PO BID #60 tablet Celecoxib [CeleBREX] 200 mg PO DAILY #30 cap Docusate Sodium [Colace] 100 mg PO BID PRN #60 cap PRN Reason: Constipation Polyethylene Glycol 3350 [MiraLAX] 17 gm PO DAILY #30 packet Home Medications: Home Meds L.acidoph,Paracasei, B.lactis [Probiotic] 2 tab PO DAILY 02/10/19 [History] atorvaSTATin Calcium [Atorvastatin Calcium] 20 mg PO DAILY 02/10/19 [History] Cholecalciferol (Vitamin D3) [Vitamin D3] 2,000 unit PO DAILY 02/14/19 [History] Acetaminophen/oxyCODONE [Percocet 325-5 MG] 1 - 2 tab PO Q4H PRN #60 tablet [Rx] Aspirin 325 mg PO BID #60 tablet 02/16/19 [Rx] Celecoxib [CeleBREX] 200 mg PO DAILY #30 cap 02/16/19 [Rx] Docusate Sodium [Colace] 100 mg PO BID PRN #60 cap 02/16/19 [Rx] Polyethylene Glycol 3350 [MiraLAX] 17 gm PO DAILY #30 packet 02/16/19 [Rx] Patient Handouts: Acetaminophen; Oxycodone tablets, Celecoxib capsules, Total Knee Replacement, Care After, [id number], Aspirin, ASA oral tablets, Docusate capsules, Polyethylene Glycol powder Referrals: Xuan Youngblood MD [Physician] - 03/29/19 10:00 am Norma Douglas NP [Nurse Practitioner] - 02/25/19 10:20 am - Discharge Summary/Plan Comment DC Time >30 min.: No - Patient Data Vitals - Most Recent: Last Vital Signs Temp 36.6 C 02/16/19 11:17 Pulse 84 02/16/19 11:17 Resp 16 02/16/19 11:17 BP 160/77 H 02/16/19 11:17 Pulse Ox 95 02/16/19 11:17 Weight - Most Recent: 95.708 kg Med Orders - Current: Current Medications Discontinued Medications Al Hydroxide/Mg Hydroxide (Mag-Al Plus) 30 ml PO Q4H PRN PRN Reason: Indigestion Aspirin (Aspirin) 325 mg PO BID [facility] Last Admin: 02/16/19 08:18 Dose: 325 mg Atorvastatin Calcium (Lipitor) 20 mg PO DAILY [facility] Last Admin: 02/16/19 08:18 Dose: 20 mg Bisacodyl (Dulcolax) 10 mg RECTAL DAILY PRN PRN Reason: Constipation Cefazolin Sodium/Dextrose (Ancef) Confirm Administered Dose 2 gm IV .STK-MED ONE Stop: 02/14/19 11:17 Cefazolin Sodium/Dextrose (Ancef) Confirm Administered Dose 2 gm IV .STK-MED ONE Stop: 02/14/19 12:24 Celecoxib (Celebrex) 200 mg PO BID [facility] Last Admin: 02/16/19 08:18 Dose: 200 mg Diphenhydramine HCl (Benadryl) 25 - 50 mg PO Q6H PRN PRN Reason: Itching Docusate Sodium (Colace) 100 mg PO BID PRN PRN Reason: Constipation Ephedrine Sulfate (Ephedrine Sulfate) Confirm Administered Dose 50 mg .ROUTE .STK-MED ONE Stop: 02/14/19 12:24 Famotidine (Pepcid) 40 mg IVPUSH ONARRIVE [facility] Last Admin: 02/14/19 11:19 Dose: 40 mg Famotidine (Pepcid) 40 mg PO DAILY [facility] Last Admin: 02/16/19 08:18 Dose: 40 mg Fentanyl (Sublimaze) Confirm Administered Dose 100 mcg .ROUTE .STK-MED ONE Stop: 02/14/19 11:15 Fentanyl (Sublimaze) 50 mcg IVPUSH Q5M PRN PRN Reason: Pain (severe 7-10) Stop: 02/15/19 12:21 Hydromorphone HCl (Dilaudid) 2 mg IVPUSH ONETIME ONE Stop: 02/14/19 12:22 Last Admin: 02/14/19 19:33 Dose: Not Given Acetaminophen 1,000 mg/ Premix 100 mls @ 400 mls/hr IV ONARRIVE [facility] Last Admin: 02/14/19 11:22 Dose: 400 mls/hr Cefazolin Sodium/Dextrose 2 gm (/ Premix) 50 mls @ 100 mls/hr IV ONCALL [facility] Ropivacaine 49.25 ml/Ketorolac Tromethamine 30 mg/Epinephrine HCl 0.5 mg/ Clonidine HCl 80 mcg/ Sodium Chloride 100 mls @ 50 mls/sec INJECT ASDIRECTED [facility] Lactated Ringer's (Ringers, Lactated) 1,000 mls @ 100 mls/hr IV ASDIRECTED [facility] Last Admin: 02/15/19 09:53 Dose: 100 mls/hr Tranexamic Acid 2,000 mg/ (Sodium Chloride) 120 mls @ 600 mls/hr IV ASDIRECTED ONE Stop: 02/14/19 06:11 Last Admin: 02/14/19 19:33 Dose: Not Given Acetaminophen 1,000 mg/ Premix 100 mls @ 400 mls/hr IV Q6H [facility] Stop: 02/15/19 06:14 Last Admin: 02/15/19 05:43 Dose: 400 mls/hr Cefazolin Sodium/Dextrose 2 gm (/ Premix) 50 mls @ 100 mls/hr IV Q8H [facility] Stop: 02/15/19 04:29 Last Admin: 02/15/19 03:42 Dose: 100 mls/hr Ketorolac Tromethamine (Toradol) 30 mg IVPUSH Q6H [facility] Stop: 02/15/19 05:00 Last Admin: 02/15/19 00:03 Dose: 30 mg Midazolam HCl (Versed 1 Mg/Ml) Confirm Administered Dose 2 mg .ROUTE .STK-MED ONE Stop: 02/14/19 11:15 Morphine Sulfate (Morphine Door Slinger 30 Mg In 30 Ml) 30 mg IV ASDIRECTED PRN; Protocol PRN Reason: Pain Stop: 02/15/19 06:00 Last Admin: 02/14/19 14:03 Dose: 30 mg Morphine Sulfate (Morphine) 1 - 3 mg IVPUSH Q3H PRN PRN Reason: Pain Ondansetron HCl (Zofran) 4 mg IVPUSH ONETIME ONE Stop: 02/14/19 12:22 Last Admin: 02/14/19 19:33 Dose: Not Given Ondansetron HCl (Zofran) 4 mg IVPUSH Q6H PRN PRN Reason: Nausea/Vomiting Oxycodone HCl (Oxycodone) 5 - 10 mg PO Q4H PRN PRN Reason: Pain Stop: 02/15/19 08:00 Last Admin: 02/14/19 23:56 Dose: 10 mg Oxycodone/Acetaminophen (Percocet 325-5 Mg) 1 - 2 tab PO Q4H PRN PRN Reason: Pain Last Admin: 02/16/19 13:08 Dose: 1 tab Oxycodone/Acetaminophen (Percocet 325-5 Mg) 1 - 2 tab PO Q4H PRN PRN Reason: Pain Phenylephrine HCl (David-Synephrine) Confirm Administered Dose 10 mg .ROUTE .STK- MED ONE Stop: 02/14/19 12:24 Polyethylene Glycol (Miralax) 17 gm PO DAILY PAT Last Admin: 02/16/19 08:18 Dose: 17 gm Propofol (Diprivan 20 Ml) Confirm Administered Dose 600 mg .ROUTE .STK-MED ONE Stop: 02/14/19 11:15 Scopolamine (Transderm-Scop) 1.5 mg TRDERM ONARRIVE [facility] Last Admin: 02/14/19 11:26 Dose: 1.5 mg Sodium Chloride (Saline Flush) 10 ml FLUSH ASDIRECTED PRN PRN Reason: Keep Vein Open Sodium Chloride (Saline Flush) 2.5 ml FLUSH ASDIRECTED PRN PRN Reason: Keep Vein Open Tramadol HCl (Ultram) 100 mg PO Q6H PRN PRN Reason: Breakthrough Pain Last Admin: 02/15/19 20:12 Dose: 100 mg Tranexamic Acid (Cyklokapron) Confirm Administered Dose 2,000 mg .ROUTE .STK- MED ONE Stop: 02/14/19 07:39
== END 2019-02-16 13:15 | disposition home or self-care (01) | DRG 302 ==
LOC: MW.SDS 10:14 → MW.MS 14:19
PROVIDERS: ADMIT Orthopaedic Surgery; ATTEND Orthopaedic Surgery
PROC: 0SRC0J9 Replacement of Right Knee Joint with Synthetic Substitute, Cemented, Open Approach (ICD-10-PCS; principal; 2019-02-14)
DX: M17.11 Unilateral primary osteoarthritis, right knee (principal); E66.01 Morbid (severe) obesity due to excess calories; I10 Essential (primary) hypertension; M94.261 Chondromalacia, right knee; M25.761 Osteophyte, right knee; E78.5 Hyperlipidemia, unspecified; G89.29 Other chronic pain; Z68.37 Body mass index [BMI] 37.0-37.9, adult; E78.00 Pure hypercholesterolemia, unspecified; Z79.899 Other long term (current) drug therapy
CPT/HCPCS: 36415; 73560-26-RT; 73560-RT; 81025; 85014; 85018; 86850; 86900; 86901; 97110-GP; 97116-GP; 97161-GP; 97530-GP; A9270-GY; C1776; J0131; J0171; J0690; J0735; J1885; J2250; J2274; J2370; J2704; J2795; J3010; J3490; J7050; J7120

== ENCOUNTER 2020-05-31 14:59 | Observation (INO) | payer BC ==
--- NOTE | 2020-05-31 16:30 | EDM.PDOC ---
ED [facility] GENERAL MEDICAL PROBLEM - General Chief Complaint: General Stated Complaint: DIZZY Time Seen by Provider: 05/31/20 15:44 Source of Information: Reports: Patient, Old Records History Limitations: Reports: No Limitations - History of Present Illness INITIAL COMMENTS - FREE TEXT/NARRATIVE: 54-year-old female with past medical history of hyperlipidemia presenting with dizziness. She reports the onset of dizziness last night while lying in bed. States that she had the sensation of the room spinning. This happened about 7 or 8 different times, the longest episode was no longer than about 1 to 2 minutes in duration. No prior history of vertigo. She had several other episodes today so she came to the emergency department. Last episode subsided while she was in the waiting room, about 1 hour ago. At present she has no complaints and her dizziness has resolved. Her dizziness was not discretely triggered by head movement. She states that she sat up from bed and moved to a chair and did not have any associated dizziness. She denies any associated head or neck pain, visual disturbance, dysarthria, dysphasia, facial droop, facial or extremity numbness or weakness, or gait instability. No prior history of CVA or TIA. At present she has no complaints. ROS: A 10-point review of systems was negative, except as noted in the HPI (or in the ROS section of this note). Past medical history: Reviewed, no additional pertinent history. Surgical history: Reviewed in system, no additional pertinent history. Social history: Reviewed in system, no additional pertinent history. Family history: Reviewed in system, no additional pertinent history. PHYSICAL EXAM Vital signs reviewed. Nursing notes reviewed. Constitutional: Awake, alert, non-distressed. Head: Normocephalic, atraumatic. Eyes: EOMI, conjunctiva normal, no discharge, no scleral icterus. Pupils 3 mm bilaterally Ears, Nose, Throat: External ears and nose normal, moist oral mucosa. Cardiovascular: 2+ radial pulse, capillary refill less than 2 seconds. No carotid bruits bilaterally Pulmonary: normal work of breathing, no accessory muscle use. Abdomen/GI: Soft, nontender, nondistended, no guarding or rigidity, no masses. Musculoskeletal: No deformities. Integumentary: Appropriate color for ethnicity, warm, dry, no pallor or jaundice, no rash. Neurologic: Awake, alert, and oriented x3. Cranial nerves II through XII intact. No facial droop or dysarthria. No temporal artery tenderness. Supple neck with normal range of motion. No pronator drift. Normal [id number]-qifudd and vchw-[id number]. No dysdiadochokinesia. 5/5 strength in all extremities. Sensation intact to light touch x4. Negative Romberg. Normal gait. Normal visual fay, no field cuts. Able to sit, stand, and ambulate without assistance. Psychiatric: Appropriate mood and affect, normal thought process. no pain Pain Score (Numeric/FACES): 0 - Related Data Allergies Allergy/AdvReac Type Severity Reaction Status Date / Time No Known Allergies Allergy Verified 05/31/20 20:34 Home Meds: Home Meds atorvaSTATin Calcium [Atorvastatin Calcium] 20 mg PO BEDTIME 02/10/19 [History] Cholecalciferol (Vitamin D3) [Vitamin D3] 2,000 unit PO DAILY 02/14/19 [History] Garlic 100 mg PO DAILY 05/31/20 [History] L.acidoph,Paracasei, B.lactis [Probiotic] 1 each PO 05/31/20 [History] Past Medical History HEENT History: Reports: Other (See Below) Other HEENT History: reading glasses Cardiovascular History: Reports: High Cholesterol Respiratory History: Reports: None Gastrointestinal History: Reports: None Genitourinary History: Reports: None Musculoskeletal History: Reports: Osteoarthritis Neurological History: Reports: None Psychiatric History: Reports: None Endocrine/Metabolic History: Reports: Obesity/BMI 30+ Hematologic History: Reports: None Immunologic History: Reports: None Oncologic (Cancer) History: Reports: None Dermatologic History: Reports: None - Infectious Disease History Infectious Disease History: Reports: Chicken Pox - Past Surgical History Head Surgeries/Procedures: Reports: None Respiratory Surgical History: Reports: None GI Surgical History: Reports: Colonoscopy, Hernia, Abdominal Female Surgical History: Reports: None Neurological Surgical History: Reports: None Musculoskeletal Surgical History: Reports: Knee Replacement Oncologic Surgical History: Reports: None Dermatological Surgical History: Reports: None Social & Family History - Family History Family Medical History: Noncontributory - Tobacco Use Smoking Status *Q: Never Smoker Second Hand Smoke Exposure: No - Caffeine Use Caffeine Use: Reports: None - Recreational Drug Use Recreational Drug Use: No ED ROS GENERAL - Review of Systems Review Of Systems: See Below ED EXAM, GENERAL - Physical Exam Exam: See Below Course - Vital Signs Text/Narrative:: Patient hemodynamically stable, afebrile, well-appearing, looks nontoxic. Differential diagnosis includes but is not limited to: carotid artery dissecti on, Wallenberg syndrome, arrhythmia, cardiac valvular disorder, anemia, hypoglycemia, orthostatic syncope, multiple sclerosis, acoustic neuroma, Meniere's disease, labyrinthitis, benign paroxysmal positional vertigo, and many others. Labs look reassuring. Neurologic examination shows no findings. There is concern for a posterior circulation TIA given that her symptoms are not triggered by head movement and are episodic and intermittent in nature. We did obtain CT imaging of the head and neck with angiographic windows and there is critical stenosis of the left internal carotid artery. I am concerned about TIA and the radiologist recommend MR imaging of the head and neck vasculature. At present the patient is symptom-free. She was given full dose aspirin. I would favor admission to the hospital for TIA work-up including echocardiogram, lipid panel, diabetes evaluation, and neurology consultation if available. I spoke to Dr. Andrew Spain the hospitalist who agrees to admit. Last Recorded V/S: Last Vital Signs Temp 36.6 C 06/01/20 04:10 Pulse 66 06/01/20 04:10 Resp 16 06/01/20 04:10 BP 130/71 06/01/20 04:10 Pulse Ox 98 06/01/20 04:10 - Orders/Labs/Meds Orders: Active Orders 24 hr Category Date Time Status Cardiac Monitoring [RC] . DIRECTED Care 05/31/20 16:26 Active Labs: Laboratory Tests 05/31/20 05/31/20 05/31/20 Range/Units 16:37 16:37 16:37 WBC 6.13 (4.0-11.0) K/uL RBC 5.29 (4.30-5.90) M/uL Hgb 14.1 (12.0-16.0) g/dL Hct 43.2 (36.0-46.0) % MCV 81.7 (80.0-98.0) fL MCH 26.7 L (27.0-32.0) pg MCHC 32.6 (31.0-37.0) g/dL RDW Std Deviation 45.6 (28.0-62.0) fl RDW Coeff of Jasvir 15 (11.0-15.0) % Plt Count 197 (150-400) K/uL MPV 10.00 (7.40-12.00) fL Neut % (Auto) 60.2 (48.0-80.0) % Lymph % (Auto) 34.7 (16.0-40.0) % [place] % (Auto) 4.4 (0.0-15.0) % Eos % (Auto) 0.2 (0.0-7.0) % Baso % (Auto) 0.5 (0.0-1.5) % Neut # (Auto) 3.7 (1.4-5.7) K/uL Lymph # (Auto) 2.1 (0.6-2.4) K/uL [place] # (Auto) 0.3 (0.0-0.8) K/uL Eos # (Auto) 0.0 (0.0-0.7) K/uL Baso # (Auto) 0.0 (0.0-0.1) K/uL Nucleated RBC % 0.0 /100WBC Nucleated RBCs # 0 K/uL Sodium 139 (136-145) mmol/L Potassium 3.7 (3.5-5.1) mmol/L Chloride 103 (98-107) mmol/L Carbon Dioxide 28.2 (21.0-32.0) mmol/L BUN 8 (7.0-18.0) mg/dL Creatinine 1.0 (0.6-1.0) mg/dL Est Cr Clr Drug Dosing 54.89 mL/min Estimated GFR (MDRD) > 60.0 ml/min Glucose 99 (74-106) mg/dL Calcium 10.0 (8.5-10.1) mg/dL Troponin I < 0.050 (0.000-0.056) ng/mL Triglycerides 42 (0-200) mg/dL Cholesterol 210 H (50-200) mg/dL LDL Cholesterol, Calc 96 (60-180) mg/dL VLDL Cholesterol 8 (5-55) mg/dL HDL Cholesterol 106 H (40-60) mg/dL Cholesterol/HDL Ratio 2.0 L (3.3-6.0) Meds: Medications Discontinued Medications Generic Name Dose Route Start Last Admin Trade Name Malikq PRN Reason Stop Dose Admin Aspirin 325 mg 05/31/20 19:06 05/31/20 19:17 Aspirin PO 05/31/20 19:07 325 mg ONETIME ONE Administration Iopamidol 100 ml 05/31/20 18:57 05/31/20 18:58 Isovue Multipack-370 (76%) IVPUSH 05/31/20 18:58 100 ml ONETIME STA Administration Departure - Departure Time of Disposition: 19:10 Disposition: Refer to Observation Condition: Good Clinical Impression: TIA (transient ischemic attack) - Discharge Information Sepsis Event Note (ED) - Evaluation Sepsis Screening Result: No Definite Risk - My Orders Last 24 Hours: My Active Orders 05/31/20 16:26 Cardiac Monitoring [RC] . DIRECTED - Assessment/Plan Last 24 Hours: My Active Orders 05/31/20 16:26 Cardiac Monitoring [RC] . DIRECTED
[2020-05-31 17:08] LABS: BLOOD UREA NITROGEN,BUN 8 mg/dL (7.0-18.0); CARBON DIOXIDE,CO2 28.2 mmol/L (21.0-32.0); CHLORIDE,CL 103 mmol/L (98-107); GLUCOSE RANDOM 99 mg/dL (74-106); POTASSIUM,K 3.7 mmol/L (3.5-5.1); SODIUM,NA 139 mmol/L (136-145)
--- NOTE | 2020-05-31 18:46 | CT ---
CT angiogram of brain (without and with intravenous contrast) Technique: Multiple axial sections through the brain were obtained with reconstructed coronal and sagittal images without IV contrast. Intravenous contrast then given and imaging obtained during the arterial phase for a CT angiogram of the brain. Multiple MIP images were then obtained. Findings: Head CT: Ventricles along with basal cisterns and sulci over the convexities appear within normal limits for the patient's age. Minimal areas of diminished density are noted within the periventricular white matter compatible with minimal small vessel ischemic demyelination change. Small low-density findings are noted within both basal ganglia most likely due to prominent perivascular spaces since they are symmetric in appearance. No evidence of intracranial hemorrhage. No midline shift or mass-effect is seen. Bone window settings were reviewed which shows no acute osseous finding. Visualized paranasal sinuses and mastoid sinuses showed nothing acute. CT angiogram of brain: Normal appearance of the distal vertebral arteries into the basilar artery and into both posterior cerebral arteries. Distal internal carotid arteries show normal flow into the anterior and middle cerebral arteries. Anterior middle cerebral arteries appear within normal limits. No focal stenosis or occlusion is seen. No discrete aneurysm is appreciated. Impression: 1. Minimal senescent change as noted above. 2. No acute intracranial abnormality is appreciated. 3. No abnormality is seen on CT angiogram of the brain. Diagnostic code #2 Study dictated in [place] daylight time
--- NOTE | 2020-05-31 18:52 | CT ---
CT angiogram of neck Technique: Multiple axial sections through the neck were obtained. Study obtained during the arterial phase with contrast. Study obtained as a CT angiogram protocol. Findings: Vertebral arteries appear patent on both sides. No focal stenosis, occlusion or dissection is seen. Both common carotid arteries appear patent with no focal stenosis, occlusion or dissection. Minimal atherosclerotic irregularity is noted within the carotid bulb. Right internal carotid artery appears patent into the carotid siphon. There is a focal stenosis being seen within the proximal left internal carotid artery which appears to be in the critical range of greater than 70%. No other focal areas of stenosis, occlusion or dissection. Impression: 1. Proximal left internal carotid artery shows a critical stenosis greater than 70%. MR angiogram recommended to confirm. 2. No other areas of focal stenosis, occlusion or dissection are seen within the vertebral vessels, common carotid arteries or right internal carotid artery. Diagnostic code #5 Study dictated in [place] daylight time
[2020-05-31] MEDS ORDERED: Iopamidol 755 MG/ML 200 ML Multipack Bottle IVPUSH STA (18:57)
[2020-05-31] MEDS ORDERED: Aspirin 325 MG Tab PO ONE (19:06)
--- NOTE | 2020-05-31 23:54 | PCM.HP.2 ---
H&P History of Present Illness - General Date of Service: 05/31/20 Admit Problem/Dx: Admission Diagnosis/Problem Admission Diagnosis/Problem TIA, Transient ischemic attack - History of Present Illness Initial Comments - Free Text/Narative: 54 yo female who presents to the ED with complaints of dizziness. Patient reports that last night she dizzy all night and morning. She felt the room was spinning whenever she opened her eyes. Sitting up would make it worse. The dizziness resolved before she was seen in the ED. ED physician was concerned about possible TIA so referred for observation. no pain Pain Score (Numeric/FACES): 0 - Related Data Allergies/Adverse Reactions: Allergies Allergy/AdvReac Type Severity Reaction Status Date / Time No Known Allergies Allergy Verified 05/31/20 20:34 Home Medications: Home Meds atorvaSTATin Calcium [Atorvastatin Calcium] 20 mg PO BEDTIME 02/10/19 [History] Cholecalciferol (Vitamin D3) [Vitamin D3] 2,000 unit PO DAILY 02/14/19 [History] Garlic 100 mg PO DAILY 05/31/20 [History] L.acidoph,Paracasei, B.lactis [Probiotic] 1 each PO 05/31/20 [History] Aspirin 81 mg PO BEDTIME #1 tab.chew 06/01/20 [Rx] Levothyroxine Sodium [Synthroid] 112 mcg PO ACBREAKFAST #30 tab 06/01/20 [Rx] Meclizine HCl 25 mg PO TID PRN #30 tablet 06/01/20 [Rx] Past Medical History HEENT History: Reports: Other (See Below) Other HEENT History: reading glasses Cardiovascular History: Reports: High Cholesterol Respiratory History: Reports: None Gastrointestinal History: Reports: None Genitourinary History: Reports: None Musculoskeletal History: Reports: Osteoarthritis Neurological History: Reports: None Psychiatric History: Reports: None Endocrine/Metabolic History: Reports: Obesity/BMI 30+ Hematologic History: Reports: None Immunologic History: Reports: None Oncologic (Cancer) History: Reports: None Dermatologic History: Reports: None - Infectious Disease History Infectious Disease History: Reports: Chicken Pox - Past Surgical History Head Surgeries/Procedures: Reports: None Respiratory Surgical History: Reports: None GI Surgical History: Reports: Colonoscopy, Hernia, Abdominal Female Surgical History: Reports: None Neurological Surgical History: Reports: None Musculoskeletal Surgical History: Reports: Knee Replacement, Other (See Below) Other Musculoskeletal Surgeries/Procedures:: Right Total Knee replacement Oncologic Surgical History: Reports: None Dermatological Surgical History: Reports: None Social & Family History - Family History Family Medical History: Noncontributory - Tobacco Use Smoking Status *Q: Never Smoker Second Hand Smoke Exposure: No - Caffeine Use Caffeine Use: Reports: None - Recreational Drug Use Recreational Drug Use: No H&P Review of Systems - Review of Systems: Review Of Systems: Comprehensive ROS is negative, except as noted in HPI. Exam - Exam Exam: See Below - Vital Signs Vital Signs: Last Vital Signs Temp 36.3 C 05/31/20 20:30 Pulse 65 05/31/20 20:30 Resp 19 05/31/20 20:30 BP 153/97 H 05/31/20 20:30 Pulse Ox 99 05/31/20 20:30 Weight: 94.256 kg - Exam General: Alert, Oriented HEENT: Mucosa Moist & [place] Neck: Supple Lungs: Clear to Auscultation, Normal Respiratory Effort Cardiovascular: Regular Rate, Regular Rhythm GI/Abdominal Exam: Normal Bowel Sounds, Soft, Non-Tender Extremities: Non-Tender, No Pedal Edema Skin: Warm, Dry, Intact Neurological: Cranial Nerves Intact, Reflexes Equal Bilateral, Strength Equal Bilateral, Normal Gait, Normal Speech, Normal Tone, Sensation Intact. No: Focal Deficit - Patient Data Lab Results Last 24 hrs: Laboratory Results - last 24 hr 05/31/20 05/31/20 05/31/20 Range/Units 16:37 16:37 16:37 WBC 6.13 (4.0-11.0) K/uL RBC 5.29 (4.30-5.90) M/uL Hgb 14.1 (12.0-16.0) g/dL Hct 43.2 (36.0-46.0) % MCV 81.7 (80.0-98.0) fL MCH 26.7 L (27.0-32.0) pg MCHC 32.6 (31.0-37.0) g/dL RDW Std Deviation 45.6 (28.0-62.0) fl RDW Coeff of Jasvir 15 (11.0-15.0) % Plt Count 197 (150-400) K/uL MPV 10.00 (7.40-12.00) fL Neut % (Auto) 60.2 (48.0-80.0) % Lymph % (Auto) 34.7 (16.0-40.0) % [place] % (Auto) 4.4 (0.0-15.0) % Eos % (Auto) 0.2 (0.0-7.0) % Baso % (Auto) 0.5 (0.0-1.5) % Neut # (Auto) 3.7 (1.4-5.7) K/uL Lymph # (Auto) 2.1 (0.6-2.4) K/uL [place] # (Auto) 0.3 (0.0-0.8) K/uL Eos # (Auto) 0.0 (0.0-0.7) K/uL Baso # (Auto) 0.0 (0.0-0.1) K/uL Nucleated RBC % 0.0 /100WBC Nucleated RBCs # 0 K/uL Sodium 139 (136-145) mmol/L Potassium 3.7 (3.5-5.1) mmol/L Chloride 103 (98-107) mmol/L Carbon Dioxide 28.2 (21.0-32.0) mmol/L BUN 8 (7.0-18.0) mg/dL Creatinine 1.0 (0.6-1.0) mg/dL Est Cr Clr Drug Dosing 54.89 mL/min Estimated GFR (MDRD) > 60.0 ml/min Glucose 99 (74-106) mg/dL Calcium 10.0 (8.5-10.1) mg/dL Troponin I < 0.050 (0.000-0.056) ng/mL Triglycerides 42 (0-200) mg/dL Cholesterol 210 H (50-200) mg/dL LDL Cholesterol, Calc 96 (60-180) mg/dL VLDL Cholesterol 8 (5-55) mg/dL HDL Cholesterol 106 H (40-60) mg/dL Cholesterol/HDL Ratio 2.0 L (3.3-6.0) COVID-19 (SIRENA) (NEGATIVE) 05/31/ Range/Units 19:31 WBC (4.0-11.0) K/uL RBC (4.30-5.90) M/uL Hgb (12.0-16.0) g/dL Hct (36.0-46.0) % MCV (80.0-98.0) fL MCH (27.0-32.0) pg MCHC (31.0-37.0) g/dL RDW Std Deviation (28.0-62.0) fl RDW Coeff of Jasvir (11.0-15.0) % Plt Count (150-400) K/uL MPV (7.40-12.00) fL Neut % (Auto) (48.0-80.0) % Lymph % (Auto) (16.0-40.0) % [place] % (Auto) (0.0-15.0) % Eos % (Auto) (0.0-7.0) % Baso % (Auto) (0.0-1.5) % Neut # (Auto) (1.4-5.7) K/uL Lymph # (Auto) (0.6-2.4) K/uL [place] # (Auto) (0.0-0.8) K/uL Eos # (Auto) (0.0-0.7) K/uL Baso # (Auto) (0.0-0.1) K/uL Nucleated RBC % /100WBC Nucleated RBCs # K/uL Sodium (136-145) mmol/L Potassium (3.5-5.1) mmol/L Chloride (98-107) mmol/L Carbon Dioxide (21.0-32.0) mmol/L BUN (7.0-18.0) mg/dL Creatinine (0.6-1.0) mg/dL Est Cr Clr Drug Dosing mL/min Estimated GFR (MDRD) ml/min Glucose (74-106) mg/dL Calcium (8.5-10.1) mg/dL Troponin I (0.000-0.056) ng/mL Triglycerides (0-200) mg/dL Cholesterol (50-200) mg/dL LDL Cholesterol, Calc (60-180) mg/dL VLDL Cholesterol (5-55) mg/dL HDL Cholesterol (40-60) mg/dL Cholesterol/HDL Ratio (3.3-6.0) COVID-19 (SIRENA) NEGATIVE (NEGATIVE) Result Diagrams: 05/31/20 16:37 05/31/20 16:37 Sepsis Event Note - Evaluation Sepsis Screening Result: No Definite Risk - Focused Exam Vital Signs: Vital Signs Temp Pulse Resp BP Pulse Ox 05/31/20 20:30 36.3 C 65 19 153/97 H 99 05/31/20 20:16 35.5 C L 72 18 154/72 H 99 05/31/20 19:09 35.5 C L 69 18 137/74 99 05/31/20 16:17 78 134/81 98 05/31/20 15:45 36.2 C 74 18 153/72 H 99 Date Exam was Performed: 06/02/20 Time Exam was Performed: 11:47 Problem List Initiated/Reviewed/Updated: Yes Orders Last 24hrs: Active Orders 24 hr Category Date Time Status Admission Status [Patient Status] [ADT] Stat ADT 05/31/20 19:09 Active Cardiac Monitoring [RC] . DIRECTED Care 05/31/20 16:26 Active Telemetry Monitoring [Cardiac Monitoring] [RC] . Care 05/31/20 19:57 Active DIRECTED Vital Signs [RC] Q4H Care 05/31/20 20:37 Active Regular Diet [DIET] Diet 05/31/20 Dinner Active Assessment/Plan Comment:: 54 yo female admitted with vertigo. MRI of brain ordered. PT consulted.
[2020-06-01] MEDS ORDERED: Aspirin 325 MG Tab PO SCH (09:00)
[2020-06-01 09:44] LABS: HEMOGLOBIN A1C 5.8 % (4.5-6.2)
--- NOTE | 2020-06-01 10:11 | MR ---
MR angiogram of brain Technique: [id number] MR angiogram sequences were obtained through the brain centered to the [place]. Multiple MIP images were obtained in multiple projections. Comparison: Prior CT angiogram of brain dated 05/31/20. Findings: Distal vertebral arteries are patent. Basilar artery is patent. Posterior cerebral arteries are patent on both sides. Carotid siphon are patent on both sides. Middle cerebral arteries and anterior cerebral arteries show no focal stenosis or occlusion. Impression: 1. No abnormality is identified on MR angiogram of the brain (centered to the [place]). Diagnostic code #1 This report was dictated in MDT
[2020-06-01] MEDS ORDERED: Gadobenate Dimeglumine 529 MG/ML 20 ML SDV IVPUSH STA (11:01)
--- NOTE | 2020-06-01 12:36 | MR ---
MRI brain (without and with intravenous contrast) Technique: T1 sagittal and coronal; T1, T2, FLAIR and diffusion axial; T1 fat-suppressed postcontrast axial, coronal and sagittal images were obtained. Comparison: Prior noncontrast head CT study of 05/31/20. Findings: Ventricles along with basal cisterns and sulci over the convexities are within normal limits for the patient's age. Single area of increased signal noted on the FLAIR sequence within the right basal ganglia. No other abnormal signal is seen within the brain parenchyma. No midline shift or mass-effect is seen. Normal signal void is seen within the major cerebral arteries within the skull base. Slightly prominent perivascular spaces are seen within the basal ganglia which are normal. Normal signal void is seen within the major cerebral arteries within the skull base. No abnormal enhancement is appreciated. Impression: 1. Findings believed to be incidental as described above. 2. Nothing acute is appreciated. Diagnostic code #2 This report was dictated in MDT
--- NOTE | 2020-06-01 12:36 | MR ---
Addendum: Study compared to previous CT neck exam of 05/31/20. Prior study showed an apparent critical stenosis within the left proximal internal carotid artery greater than 70 percent. This is not confirmed on the MR angiogram and was therefore artifact on previous CT study. --- Addendum1 above dictated on [06/01/2020 11:57] by [Juan Luis Simon, Jonathan Preciado] --- --- Addendum1 above signed on [06/01/2020 11:59] by [Juan Luis Simon, Jonathan Preciado] --- --- Original report below dictated on [06/01/2020 10:06] by [Juan Luis Simon, Jonathan Preciado] --- --- Original report below signed on [06/01/2020 11:34] by [Juan Luis Simon, Jonathan Preciado] --- MR angiogram of neck Technique: Postcontrast MR angiogram study was obtained centered to the neck. Multiple MIP images were obtained. Findings: Brachiocephalic and subclavian arteries are patent on both sides. Common carotid arteries are patent on both sides. Internal and external carotid arteries are patent. Both vertebral arteries are patent into the basilar artery. Impression: 1. No abnormality is identified on MR angiogram of the neck. Diagnostic code #1 This report was dictated in MDT --- Addendum1 signed ---
--- NOTE | 2020-06-01 13:38 | PCM.DCSUM1 ---
Discharge Summary - Hospital Course Brief History: 54 yo female who presents to the ED with complaints of dizziness. Patient reports that last night she dizzy all night and morning. She felt the room was spinning whenever she opened her eyes. Sitting up would make it worse. The dizziness resolved before she was seen in the ED. ED physician was concerned about possible TIA so referred for observation. Diagnosis: Stroke: No Modified Yessenia Scale: No Symptoms at All Modified Yessenia Scale Score: 0 - Discharge Data Discharge Date: 06/01/20 Discharge Disposition: Home, Self-Care 01 Condition: Good - Referral to Home Health Primary Care Physician: Alejandra Johnson MD - Patient Summary/Data Consults: Consultations 05/31/20 23:57 PT Evaluation and Treatment [CONS] Routine Hospital Course: Admitting Diagnoses: Dizziness Possible TIA Discharge Diagnoses: Vertigo Hypothyroidism [place] was admitted due to dizziness and concern for TIA. She was monitored on telemetry with no arrhythmias noted. CTA of neck showed concern for significant stenosis over 70% to L ICA. Recommended MRA of neck to confirm. Consulted [facility] radiology, consult read reveals atherosclerotic plaque in proximal L ICA without significant stenosis. MRA head and neck obtained which showed nothing acute. TSH noted to be elevated at 12. A1c 5.8 Total cholesterol 209, LDL 96 and HDL 106. She is to continue Atorvastatin, start taking ASA 81 mg daily. I will start er on 112 mcg Levothryoxine. She is to follow with PCP for TSH level in 4-6 weeks. PT evaluated her, no signs of BPPV. No vertigo now. She will be discharged home today. I will send Meclizine PRN for dizziness. She was encouraged to return to ED or clinic if concerns should arise. - Patient Instructions Diet: Heart Healthy Diet Activity: As Tolerated, No Strenuous Activities Showering/Bathing: May Shower Notify Provider of: Fever, Increased Pain, Swelling and Redness, Drainage, Nausea and/or Vomiting - Discharge Plan *PRESCRIPTION DRUG MONITORING PROGRAM REVIEWED*: Not Applicable *COPY OF PRESCRIPTION DRUG MONITORING REPORT IN PATIENT [place]KAEL: Not Applicable Prescriptions/Med Rec: Aspirin 81 mg PO BEDTIME #1 tab.chew Meclizine HCl 25 mg PO TID PRN #30 tablet PRN Reason: Dizziness Levothyroxine Sodium [Synthroid] 112 mcg PO ACBREAKFAST #30 tab Home Medications: Home Meds atorvaSTATin Calcium [Atorvastatin Calcium] 20 mg PO BEDTIME 02/10/19 [History] Cholecalciferol (Vitamin D3) [Vitamin D3] 2,000 unit PO DAILY 02/14/19 [History] Garlic 100 mg PO DAILY 05/31/20 [History] L.acidoph,Paracasei, B.lactis [Probiotic] 1 each PO 05/31/20 [History] Aspirin 81 mg PO BEDTIME #1 tab.chew 06/01/20 [Rx] Levothyroxine Sodium [Synthroid] 112 mcg PO ACBREAKFAST #30 tab 06/01/20 [Rx] Meclizine HCl 25 mg PO TID PRN #30 tablet 06/01/20 [Rx] Oxygen Therapy Mode: Room Air Patient Handouts: Meclizine tablets or capsules, Levothyroxine tablets, Vertigo, [id number], Aspirin, ASA oral tablets Referrals: Alejandra Johnson MD [Primary Care Provider] - 06/07/20 1:00 pm (Please arrive 15 minutes early with your identification, insurance cards and your own facemask.) - Discharge Summary/Plan Comment DC Time >30 min.: No - Patient Data Vitals - Most Recent: Last Vital Signs Temp 96.9 F 06/01/20 12:00 Pulse 59 L 06/01/20 12:00 Resp 16 06/01/20 12:00 BP 132/70 06/01/20 12:00 Pulse Ox 100 06/01/20 12:00 Weight - Most Recent: 94.256 kg I&O - Last 24 hours: Intake & Output 05/31/20 06/01/20 06/01/20 22:59 06:59 14:59 Intake Total 120 Output Total 300 Balance -180 Lab Results - Last 24 hrs: Laboratory Results - last 24 hr 05/31/20 05/31/20 05/31/20 Range/Units 14:10 16:37 16:37 WBC 6.13 (4.0-11.0) K/uL RBC 5.29 (4.30-5.90) M/uL Hgb 14.1 (12.0-16.0) g/dL Hct 43.2 (36.0-46.0) % MCV 81.7 (80.0-98.0) fL MCH 26.7 L (27.0-32.0) pg MCHC 32.6 (31.0-37.0) g/dL RDW Std Deviation 45.6 (28.0-62.0) fl RDW Coeff of Jasvir 15 (11.0-15.0) % Plt Count 197 (150-400) K/uL MPV 10.00 (7.40-12.00) fL Neut % (Auto) 60.2 (48.0-80.0) % Lymph % (Auto) 34.7 (16.0-40.0) % [place] % (Auto) 4.4 (0.0-15.0) % Eos % (Auto) 0.2 (0.0-7.0) % Baso % (Auto) 0.5 (0.0-1.5) % Neut # (Auto) 3.7 (1.4-5.7) K/uL Lymph # (Auto) 2.1 (0.6-2.4) K/uL [place] # (Auto) 0.3 (0.0-0.8) K/uL Eos # (Auto) 0.0 (0.0-0.7) K/uL Baso # (Auto) 0.0 (0.0-0.1) K/uL Nucleated RBC % 0.0 /100WBC Nucleated RBCs # 0 K/uL Sodium 139 (136-145) mmol/L Potassium 3.7 (3.5-5.1) mmol/L Chloride 103 (98-107) mmol/L Carbon Dioxide 28.2 (21.0-32.0) mmol/L BUN 8 (7.0-18.0) mg/dL Creatinine 1.0 (0.6-1.0) mg/dL Est Cr Clr Drug Dosing 54.89 mL/min Estimated GFR (MDRD) > 60.0 ml/min Glucose 99 (74-106) mg/dL Hemoglobin A1c (4.5-6.2) % Calcium 10.0 (8.5-10.1) mg/dL Troponin I < 0.050 (0.000-0.056) ng/mL Triglycerides (0-200) mg/dL Cholesterol (50-200) mg/dL LDL Cholesterol, Calc (60-180) mg/dL VLDL Cholesterol (5-55) mg/dL HDL Cholesterol (40-60) mg/dL Cholesterol/HDL Ratio (3.3-6.0) Free T4 0.78 (0.76-1.46) ng/dL TSH 3rd Generation (0.36-3.74) uIU/mL COVID-19 (SIRENA) (NEGATIVE) 05/31/20 05/31/20 05/31/20 Range/Units 16:37 16:37 16:37 WBC (4.0-11.0) K/uL RBC (4.30-5.90) M/uL Hgb (12.0-16.0) g/dL Hct (36.0-46.0) % MCV (80.0-98.0) fL MCH (27.0-32.0) pg MCHC (31.0-37.0) g/dL RDW Std Deviation (28.0-62.0) fl RDW Coeff of Jasvir (11.0-15.0) % Plt Count (150-400) K/uL MPV (7.40-12.00) fL Neut % (Auto) (48.0-80.0) % Lymph % (Auto) (16.0-40.0) % [place] % (Auto) (0.0-15.0) % Eos % (Auto) (0.0-7.0) % Baso % (Auto) (0.0-1.5) % Neut # (Auto) (1.4-5.7) K/uL Lymph # (Auto) (0.6-2.4) K/uL [place] # (Auto) (0.0-0.8) K/uL Eos # (Auto) (0.0-0.7) K/uL Baso # (Auto) (0.0-0.1) K/uL Nucleated RBC % /100WBC Nucleated RBCs # K/uL Sodium (136-145) mmol/L Potassium (3.5-5.1) mmol/L Chloride (98-107) mmol/L Carbon Dioxide (21.0-32.0) mmol/L BUN (7.0-18.0) mg/dL Creatinine (0.6-1.0) mg/dL Est Cr Clr Drug Dosing mL/min Estimated GFR (MDRD) ml/min Glucose (74-106) mg/dL Hemoglobin A1c 5.8 (4.5-6.2) % Calcium (8.5-10.1) mg/dL Troponin I (0.000-0.056) ng/mL Triglycerides 42 (0-200) mg/dL Cholesterol 210 H (50-200) mg/dL LDL Cholesterol, Calc 96 (60-180) mg/dL VLDL Cholesterol 8 (5-55) mg/dL HDL Cholesterol 106 H (40-60) mg/dL Cholesterol/HDL Ratio 2.0 L (3.3-6.0) Free T4 (0.76-1.46) ng/dL TSH 3rd Generation 12.37 H (0.36-3.74) uIU/mL COVID-19 (SIRENA) (NEGATIVE) 05/31/20 Range/Units 19:31 WBC (4.0-11.0) K/uL RBC (4.30-5.90) M/uL Hgb (12.0-16.0) g/dL Hct (36.0-46.0) % MCV (80.0-98.0) fL MCH (27.0-32.0) pg MCHC (31.0-37.0) g/dL RDW Std Deviation (28.0-62.0) fl RDW Coeff of Jasvir (11.0-15.0) % Plt Count (150-400) K/uL MPV (7.40-12.00) fL Neut % (Auto) (48.0-80.0) % Lymph % (Auto) (16.0-40.0) % [place] % (Auto) (0.0-15.0) % Eos % (Auto) (0.0-7.0) % Baso % (Auto) (0.0-1.5) % Neut # (Auto) (1.4-5.7) K/uL Lymph # (Auto) (0.6-2.4) K/uL [place] # (Auto) (0.0-0.8) K/uL Eos # (Auto) (0.0-0.7) K/uL Baso # (Auto) (0.0-0.1) K/uL Nucleated RBC % /100WBC Nucleated RBCs # K/uL Sodium (136-145) mmol/L Potassium (3.5-5.1) mmol/L Chloride (98-107) mmol/L Carbon Dioxide (21.0-32.0) mmol/L BUN (7.0-18.0) mg/dL Creatinine (0.6-1.0) mg/dL Est Cr Clr Drug Dosing mL/min Estimated GFR (MDRD) ml/min Glucose (74-106) mg/dL Hemoglobin A1c (4.5-6.2) % Calcium (8.5-10.1) mg/dL Troponin I (0.000-0.056) ng/mL Triglycerides (0-200) mg/dL Cholesterol (50-200) mg/dL LDL Cholesterol, Calc (60-180) mg/dL VLDL Cholesterol (5-55) mg/dL HDL Cholesterol (40-60) mg/dL Cholesterol/HDL Ratio (3.3-6.0) Free T4 (0.76-1.46) ng/dL TSH 3rd Generation (0.36-3.74) uIU/mL COVID-19 (SIRENA) NEGATIVE (NEGATIVE) Med Orders - Current: Current Medications Aspirin (Aspirin) 325 mg PO DAILY [facility] Last Admin: 06/01/20 10:40 Dose: 325 mg Documented by: Atorvastatin Calcium (Lipitor) 80 mg PO BEDTIME PAT Discontinued Medications Aspirin (Aspirin) 325 mg PO ONETIME ONE Stop: 05/31/20 19:07 Last Admin: 05/31/20 19:17 Dose: 325 mg Documented by: Gadobenate Dimeglumine (Multihance) 20 ml IVPUSH ONETIME STA Stop: 06/01/20 11:02 Last Admin: 06/01/20 11:02 Dose: 19 ml Documented by: Heparin Sodium (Porcine) (Heparin Lock Flush 100 Units/Ml) 500 units FLUSH ASDIRECTED PRN PRN Reason: port deaccess Iopamidol (Isovue Multipack-370 (76%)) 100 ml IVPUSH ONETIME STA Stop: 05/31/20 18:58 Last Admin: 05/31/20 18:58 Dose: 100 ml Documented by: - Exam General: Reports: Alert, Oriented, Cooperative, No Acute Distress HEENT: Reports: Other (no dizziness) Neck: Reports: Supple Lungs: Reports: Clear to Auscultation, Normal Respiratory Effort Cardiovascular: Reports: Regular Rate, Regular Rhythm GI/Abdominal Exam: Normal Bowel Sounds, Soft, Non-Tender Neurological: Reports: No New Focal Deficit Psy/Mental Status: Reports: Alert, Normal Affect, Normal Mood
[2020-06-01] MEDS ORDERED: atorvaSTATin 40 MG Tab PO SCH (21:00)
== END 2020-06-01 14:15 | disposition home or self-care (01) ==
LOC: MW.ED 14:59 → MW.MS 19:09
PROVIDERS: ADMIT Internal Medicine; ATTEND Internal Medicine
DX: R42 Dizziness and giddiness (principal); E78.00 Pure hypercholesterolemia, unspecified; E66.9 Obesity, unspecified; E03.9 Hypothyroidism, unspecified; Z20.828 Contact with and (suspected) exposure to other viral communicable diseases; Z79.899 Other long term (current) drug therapy; Z68.35 Body mass index [BMI] 35.0-35.9, adult
CPT/HCPCS: 36415; 70496; 70498; 70544; 70548; 70553; 80048; 80061; 83036; 84439; 84443; 84484; 85025; 87635; 93005; 97161; 99285; A9270; A9577; G0378; Q9967; 99284; U0002